=== PATIENT | female | born 1960 | race Caucasian/White ===

== ENCOUNTER 2018-10-11 01:02 | Inpatient (IN) | payer MEDICARE, OTHER, MEDICAID ==
[2018-10-11 01:53] LABS: ADD MAN DIFF? NO
[2018-10-11 01:56] LABS: WHITE BLOOD COUNT 17.3 10^3/ul (4.8-10.8)
[2018-10-11 01:56] LABS: BASOPHIL # 0.1 10^3/ul (0.0-0.1); BASOPHILS % 0.3 % (0.0-2.0); EOSINOPHILS # 0.1 10^3/ul (0.0-0.5); EOSINOPHILS % 0.5 % (0.0-7.0); HEMATOCRIT 36.7 % (37.0-47.0); HEMOGLOBIN 11.7 g/dl (12.0-16.0); LYMPHOCYTES # 0.8 10^3/ul (0.8-2.9); LYMPHOCYTES % 4.8 % (15.0-51.0); MEAN CORPUSCULAR HEMOGLOBIN 29.6 pg (29.0-33.0); MEAN CORPUSCULAR HGB CONC 31.9 g/dl (32.0-37.0); MEAN CORPUSCULAR VOLUME 92.9 fl (82.0-101.0); MEAN PLATELET VOLUME 10.3 fl (7.4-10.4); MONOCYTE # 0.6 10^3/ul (0.3-0.9); MONOCYTES % 3.2 % (0.0-11.0); NEUTROPHIL # 15.7 10^3/ul (1.6-7.5); NEUTROPHILS % 90.4 % (39.0-77.0); PLATELET COUNT 241 10^3/UL (140-415); RED BLOOD COUNT 3.95 10^6/ul (4.20-5.40); RED CELL DISTRIBUTION WIDTH 12.5 % (11.5-14.5)
[2018-10-11 02:24] LABS: ALANINE AMINOTRANSFERASE 97 IU/L (13-69); ALBUMIN 4.1 g/dl (3.3-4.9); ALKALINE PHOSPHATASE 293 IU/L (42-121); ANION GAP 6 (5-13); ASPARTATE AMINO TRANSFERASE 207 IU/L (15-46); BLOOD UREA NITROGEN 47 mg/dl (7-20); CALCIUM 9.1 mg/dl (8.4-10.2); CARBON DIOXIDE 37 mmol/L (21-31); CHLORIDE 99 mmol/L (97-110); CREATININE 1.81 mg/dl (0.44-1.00); Estimated GFR 29 mL/min (>60); GLUCOSE 223 mg/dl (70-220); POTASSIUM 3.1 mmol/L (3.5-5.1); SODIUM 142 mmol/L (135-144); TOTAL PROTEIN 7.5 g/dl (6.1-8.1)
[2018-10-11 02:40] LABS: B-TYPE NATRIURETIC PEPTIDE 486 PG/ML (0-125); TROPONIN-I < 0.012 ng/ml (0.000-0.120)
[2018-10-11] MEDS: ONDANSETRON 4 MG INJ IV ×2 (02:57→07:04)
[2018-10-11] MEDS: SOD CHLORIDE 0.9% 500 ML IV (02:57)
[2018-10-11 05:04] LABS: LIPASE 111 U/L (23-300)
[2018-10-11 08:13] LABS: CREATINE KINASE 33 IU/L (23-200)
[2018-10-11 08:24] LABS: CK INDEX 0.7; CK-MB < 0.22 ng/ml (0.0-2.4); TROPONIN-I < 0.012 ng/ml (0.000-0.120)
[2018-10-11 08:45] LABS: ADD UMIC NO; UR ASCORBIC ACID NEGATIVE (NEGATIVE); UR BILIRUBIN (Dip) NEGATIVE (NEGATIVE); UR BLOOD (Dip) NEGATIVE (NEGATIVE); UR CLARITY CLEAR (CLEAR); UR COLOR YELLOW (YELLOW); UR GLUCOSE (Dip) NEGATIVE (NEGATIVE); UR KETONES (Dip) NEGATIVE (NEGATIVE); UR LEUKOCYTE ESTERASE (Dip) NEGATIVE Leu/ul (NEGATIVE); UR NITRITE (Dip) NEGATIVE (NEGATIVE); UR TOTAL PROTEIN (Dip) NEGATIVE (NEGATIVE); UR UROBILINOGEN (Dip) 1+ mg/dL (NEGATIVE)
[2018-10-11 09:52] LABS: INR 1.02; PROTIME 13.5 Sec (11.9-14.9); PT RATIO 1.1
[2018-10-11 09:53] LABS: AMMONIA < 9 umol/l (9-30)
[2018-10-11 10:10] LABS: FREE T4 (FREE THYROXINE) 1.03 ng/dl (0.64-1.79)
[2018-10-11 10:25] LABS: THYROID STIMULATING HORMONE 0.183 MIU/L (0.465-4.680)
[2018-10-11] MEDS: POTASSIUM CHLORIDE 30 MEQ in SOD CHLORIDE 0.45% 1,000 ML IV (11:55)
[2018-10-11] MEDS: AZTREONAM 1 GM/NS (PMX) 50 ML IVPB ×2 (11:55→18:28)
[2018-10-11] MEDS ORDERED: AZTREONAM 1 GM/NS (PMX) 50 ML IVPB (14:00)
[2018-10-11 14:30] LABS: CREATINE KINASE 30 IU/L (23-200)
[2018-10-11 14:44] LABS: CK INDEX 0.7; CK-MB < 0.22 ng/ml (0.0-2.4); TROPONIN-I < 0.012 ng/ml (0.000-0.120)
[2018-10-11 16:03] LABS: CARBAMAZEPINE (TEGRETOL) 6.6 ug/ml (8.0-12.0)
[2018-10-11] MEDS: ALBUTEROL/IPRATROPIUM (NEB) 3 ML AMP HHN ×2 (18:36→20:00)
[2018-10-11] MEDS ORDERED: VANCOMYCIN IV PER PHARMACY XX (19:00)
[2018-10-11] MEDS ORDERED: DEXTROSE 50% 50 ML SYRINGE IV ×2 (20:00)
[2018-10-11] MEDS ORDERED: GLUCOSE GEL 15 GRAM TUBE BUCCAL (20:00)
[2018-10-11] MEDS ORDERED: GLUCOSE GEL 15 GRAM TUBE PO ×2 (20:00)
[2018-10-11] MEDS ORDERED: GLUCAGON 1 MG INJ IM (20:00)
[2018-10-11 20:10] LABS: Allen Test ACCEPTAB; Arterial Base Excess 4.6 mmol/L (-3.0-3); Arterial Blood Gas Oxygen Sat 97.5 mmHG (95.0-98.0); Arterial COHb 1.1 % (0.0-3.0); Arterial Fraction of Oxyhgb 96.2 % (93.0-99.0); Arterial HCO3 29.6 mmol/L (22.0-26.0); Arterial MetHb 0.2 % (0.0-1.5); Arterial pCO2 45.6 mmhg (35-45); MODE MASK - SIMPLE; Site Right Radial
[2018-10-11] MEDS: INSULIN ASPART [NOVOLOG] 3 ML PEN SC (21:00)
[2018-10-11] MEDS: VANCOMYCIN HCL 1.5 GM in SOD CHLORIDE 0.9% 250 ML IVPB (22:18)
[2018-10-11] MEDS: METHYLPREDNISOLONE 125 MG INJ IV (22:19)
[2018-10-11] MEDS: carBAMAZepine (XR) 200 MG TABSR PO (22:22)
[2018-10-11] MEDS: ENOXAPARIN 30 MG/0.3 ML SYG SC (22:27)
[2018-10-11] MEDS: NPH, HUMAN INSULIN ISOPHANE 3ML VIAL SC (23:56)
[2018-10-12] MEDS: ACETAMINOPHEN 650 MG SUPP PR ×2 (01:34→11:05)
[2018-10-12] MEDS: AZTREONAM 1 GM/NS (PMX) 50 ML IVPB ×2 (01:34→09:36)
[2018-10-12] MEDS: ALBUTEROL/IPRATROPIUM (NEB) 3 ML AMP HHN ×4 (02:00→20:09)
[2018-10-12 06:03] LABS: ABNORMAL IP MESSAGE 1; HEMATOCRIT 36.7 % (37.0-47.0); HEMOGLOBIN 11.4 g/dl (12.0-16.0); MEAN CORPUSCULAR HEMOGLOBIN 29.8 pg (29.0-33.0); MEAN CORPUSCULAR HGB CONC 31.1 g/dl (32.0-37.0); MEAN CORPUSCULAR VOLUME 95.8 fl (82.0-101.0); MEAN PLATELET VOLUME 10.6 fl (7.4-10.4); PLATELET COUNT 200 10^3/UL (140-415); RED BLOOD COUNT 3.83 10^6/ul (4.20-5.40); RED CELL DISTRIBUTION WIDTH 12.7 % (11.5-14.5)
[2018-10-12 06:03] LABS: WHITE BLOOD COUNT 20.7 10^3/ul (4.8-10.8)
[2018-10-12 06:31] LABS: ADD MAN DIFF? YES; POSITIVE DIFF @See below
[2018-10-12] MEDS: LEVOTHYROXINE 75 MCG TAB PO (06:36)
[2018-10-12 06:39] LABS: ALANINE AMINOTRANSFERASE 99 IU/L (13-69); ALBUMIN 3.5 g/dl (3.3-4.9); ALBUMIN/GLOBULIN RATIO 1.06; ALKALINE PHOSPHATASE 335 IU/L (42-121); ANION GAP 13 (5-13); ASPARTATE AMINO TRANSFERASE 141 IU/L (15-46); BILIRUBIN,INDIRECT 0.1 mg/dl (0-1.1); BILIRUBIN,TOTAL 0.1 mg/dl (0.2-1.3); BLOOD UREA NITROGEN 65 mg/dl (7-20); CALCIUM 7.5 mg/dl (8.4-10.2); CARBON DIOXIDE 32 mmol/L (21-31); CHLORIDE 95 mmol/L (97-110); CREATININE 2.09 mg/dl (0.44-1.00); Estimated GFR 24 mL/min (>60); GLUCOSE 183 mg/dl (70-220); POTASSIUM 4.4 mmol/L (3.5-5.1); SODIUM 140 mmol/L (135-144); TOTAL PROTEIN 6.8 g/dl (6.1-8.1)
[2018-10-12] MEDS: INSULIN ASPART [NOVOLOG] 3 ML PEN SC ×4 (06:52→22:00)
[2018-10-12 07:55] LABS: ANISOCYTOSIS 1+ (0-0); BAND NEUTROPHILS #M 13.4 10^3/ul (0.0-0.6); BAND NEUTROPHILS % (M) 65 % (0-4); LYMPHOCYTES #M 0.6 10^3/ul (0.8-2.9); LYMPHOCYTES % (M) 3 % (15-51); MICROCYTOSIS 1+ (0-0); PLATELET ESTIMATE NORMAL; POLYCHROMASIA 3+ (0-0); SEG NEUT #M 9.4 10^3/ul (1.6-7.5); SEGMENTED NEUTROPHILS (M) % 32 % (39-77)
[2018-10-12] MEDS: ENOXAPARIN 30 MG/0.3 ML SYG SC (08:22)
[2018-10-12] MEDS: NPH, HUMAN INSULIN ISOPHANE 3ML VIAL SC ×2 (09:00→21:59)
[2018-10-12 09:36] LABS: CHOLESTEROL 143 mg/dl (100-200)
[2018-10-12 09:36] LABS: CHOL/HDL RATIO 3.2 RATIO; HDL CHOLESTEROL 44 mg/dl (37-92); LDL CHOLESTEROL,CALCULATED 68 mg/dl; TRIGLYCERIDES 155 mg/dl (0-149)
[2018-10-12] MEDS ORDERED: VANCOMYCIN 750 MG (PMX) 250 ML IVPB (10:00)
[2018-10-12 11:09] LABS: AADO2 Arterial 226.1 mmHg (7.0-24.0); Allen Test ACCEPTAB; Arterial Base Excess 4.3 mmol/L (-3.0-3); Arterial Blood Gas Oxygen Sat 97.5 mmHG (95.0-98.0); Arterial COHb 0.2 % (0.0-3.0); Arterial HCO3 29.5 mmol/L (22.0-26.0); Arterial MetHb 0.3 % (0.0-1.5); Arterial pCO2 46.4 mmhg (35-45); MODE MASK - SIMPLE; Site Right Radial
[2018-10-12] MEDS: DEXTROSE 5%-0.45% NACL 1,000 ML IV ×2 (11:46→22:02)
[2018-10-12 12:49] LABS: ADD UMIC YES; UR ASCORBIC ACID NEGATIVE (NEGATIVE); UR BILIRUBIN (Dip) NEGATIVE (NEGATIVE); UR BLOOD (Dip) 1+ mg/dL (NEGATIVE); UR CLARITY CLEAR (CLEAR); UR COLOR AMBER (YELLOW); UR GLUCOSE (Dip) NEGATIVE (NEGATIVE); UR HYALINE CAST FEW /HPF (NONE SEEN); UR KETONES (Dip) NEGATIVE (NEGATIVE); UR LEUKOCYTE ESTERASE (Dip) NEGATIVE Leu/ul (NEGATIVE); UR NITRITE (Dip) NEGATIVE (NEGATIVE); UR RBC 1 /HPF (0-5); UR SPECIFIC GRAVITY (Dip) 1.021 (1.003-1.030); UR SQUAMOUS EPITHELIAL CELL FEW /HPF (FEW); UR TOTAL PROTEIN (Dip) NEGATIVE (NEGATIVE); UR UROBILINOGEN (Dip) 2+ mg/dL (NEGATIVE); UR WBC 16 /HPF (0-5)
[2018-10-12 12:56] LABS: CREATININE,URINE RANDOM 104.73 mg/dl (20-320)
[2018-10-12 12:59] LABS: SODIUM,URINE RANDOM < 13 mmol/L (30-90)
[2018-10-12] MEDS ORDERED: MEROPENEM 1 GM/50ML(PMX) 50 ML IVPB (14:30)
[2018-10-12] MEDS: MEROPENEM 500MG/50 ML (PMX) 50 ML IVPB (15:31)
[2018-10-12 16:17] LABS: CARBAMAZEPINE (TEGRETOL) 5.3 ug/ml (8.0-12.0)
[2018-10-12] MEDS: carBAMAZepine (XR) 200 MG TABSR PO (21:00)
[2018-10-12] MEDS: METHYLPREDNISOLONE 40 MG INJ IV (21:57)
[2018-10-13] MEDS: ACETAMINOPHEN 650 MG SUPP PR (00:41)
[2018-10-13] MEDS: MEROPENEM 500MG/50 ML (PMX) 50 ML IVPB ×3 (00:45→21:48)
[2018-10-13] MEDS: CARBAMAZEPINE 200 MG TAB PO ×4 (01:00→21:07)
[2018-10-13 01:09] LABS: AADO2 Arterial 316.3 mmHg (7.0-24.0); Allen Test ACCEPTAB; Arterial Base Excess 2.8 mmol/L (-3.0-3); Arterial Blood Gas Oxygen Sat 94.8 mmHG (95.0-98.0); Arterial COHb 0.3 % (0.0-3.0); Arterial Fraction of Oxyhgb 94.3 % (93.0-99.0); Arterial HCO3 27.7 mmol/L (22.0-26.0); Arterial MetHb 0.2 % (0.0-1.5); Arterial pCO2 43.7 mmhg (35-45); MODE MASK - SIMPLE; Site Right Radial
[2018-10-13] MEDS: ALBUTEROL/IPRATROPIUM (NEB) 3 ML AMP HHN ×4 (01:31→20:38)
[2018-10-13 05:05] LABS: ABNORMAL IP MESSAGE 1; HEMATOCRIT 33.5 % (37.0-47.0); HEMOGLOBIN 10.5 g/dl (12.0-16.0); MEAN CORPUSCULAR HEMOGLOBIN 29.8 pg (29.0-33.0); MEAN CORPUSCULAR HGB CONC 31.3 g/dl (32.0-37.0); MEAN CORPUSCULAR VOLUME 95.2 fl (82.0-101.0); MEAN PLATELET VOLUME 10.9 fl (7.4-10.4); PLATELET COUNT 192 10^3/UL (140-415); RED BLOOD COUNT 3.52 10^6/ul (4.20-5.40); RED CELL DISTRIBUTION WIDTH 12.5 % (11.5-14.5)
[2018-10-13 05:05] LABS: WHITE BLOOD COUNT 18.5 10^3/ul (4.8-10.8)
[2018-10-13 05:10] LABS: ADD MAN DIFF? YES; POSITIVE DIFF @See below
[2018-10-13 05:25] LABS: ANION GAP 9 (5-13); BLOOD UREA NITROGEN 78 mg/dl (7-20); CALCIUM 6.5 mg/dl (8.4-10.2); CARBON DIOXIDE 29 mmol/L (21-31); CHLORIDE 102 mmol/L (97-110); CREATININE 2.22 mg/dl (0.44-1.00); Estimated GFR 23 mL/min (>60); GLUCOSE 237 mg/dl (70-220); POTASSIUM 4.3 mmol/L (3.5-5.1); SODIUM 140 mmol/L (135-144)
[2018-10-13 05:43] LABS: PHOSPHORUS 4.4 mg/dl (2.5-4.9)
[2018-10-13 05:44] LABS: MAGNESIUM 8.2 mg/dl (1.7-2.5)
[2018-10-13] MEDS: LEVOTHYROXINE 100 MCG VIAL IV (06:27)
[2018-10-13 06:55] LABS: ALANINE AMINOTRANSFERASE 74 IU/L (13-69); ALBUMIN 3.2 g/dl (3.3-4.9); ALBUMIN/GLOBULIN RATIO 1.06; ALKALINE PHOSPHATASE 422 IU/L (42-121); ANION GAP 10 (5-13); ASPARTATE AMINO TRANSFERASE 77 IU/L (15-46); BLOOD UREA NITROGEN 78 mg/dl (7-20); CALCIUM 6.6 mg/dl (8.4-10.2); CARBON DIOXIDE 28 mmol/L (21-31); CHLORIDE 102 mmol/L (97-110); Estimated GFR 23 mL/min (>60); GLUCOSE 211 mg/dl (70-220); PHOSPHORUS 4.7 mg/dl (2.5-4.9); POTASSIUM 4.3 mmol/L (3.5-5.1); SODIUM 140 mmol/L (135-144); TOTAL PROTEIN 6.2 g/dl (6.1-8.1)
[2018-10-13] MEDS: LORAZEPAM 2 MG INJ IV (07:00)
[2018-10-13 07:04] LABS: MAGNESIUM 8.2 mg/dl (1.7-2.5)
[2018-10-13] MEDS: DEXTROSE 5%-0.45% NACL 1,000 ML IV (07:30)
[2018-10-13] MEDS: FUROSEMIDE 40 MG INJ IV ×2 (07:51→16:29)
[2018-10-13] MEDS: CALCIUM GLUCONATE 10% 1 GM in DEXTROSE 5% 100 ML IVPB (08:10)
[2018-10-13] MEDS: METHYLPREDNISOLONE 40 MG INJ IV ×2 (08:15→21:06)
[2018-10-13] MEDS: NPH, HUMAN INSULIN ISOPHANE 3ML VIAL SC ×2 (08:23→22:01)
[2018-10-13] MEDS: ENOXAPARIN 30 MG/0.3 ML SYG SC (08:24)
[2018-10-13] MEDS: SOD CHLORIDE 0.9% 1,000 ML IV ×2 (08:39→16:00)
[2018-10-13] MEDS: INSULIN ASPART [NOVOLOG] 3 ML PEN SC ×4 (08:39→21:00)
[2018-10-13] MEDS ORDERED: CARBAMAZEPINE 200 MG TAB PO (09:00)
[2018-10-13 09:07] LABS: BAND NEUTROPHILS #M 7.4 10^3/ul (0.0-0.6); BAND NEUTROPHILS % (M) 40 % (0-4); LYMPHOCYTES #M 0.1 10^3/ul (0.8-2.9); LYMPHOCYTES % (M) 1 % (15-51); MONOCYTE #M 0.3 10^3/ul (0.3-0.9); MONOCYTES % (M) 2 % (0-11); PLATELET ESTIMATE NORMAL; REACTIVE LYMPHOCYTES #M 0.3 10^3/ul (0.0-0.0); REACTIVE LYMPHOCYTES% (M) 2 % (0-0); SEG NEUT #M 11.5 10^3/ul (1.6-7.5); SEGMENTED NEUTROPHILS (M) % 55 % (39-77); SMUDGE%M 4 % (0-0)
[2018-10-13 09:15] LABS: AADO2 Arterial 248.3 mmHg (7.0-24.0); Allen Test ACCEPTAB; Arterial Base Excess -0.6 mmol/L (-3.0-3); Arterial Blood Gas Oxygen Sat 98.4 mmHG (95.0-98.0); Arterial COHb 0.4 % (0.0-3.0); Arterial Fraction of Oxyhgb 97.8 % (93.0-99.0); Arterial HCO3 23.6 mmol/L (22.0-26.0); Arterial MetHb 0.2 % (0.0-1.5); Arterial pCO2 37.5 mmhg (35-45); MODE MASK - SIMPLE; Site Left Radial
[2018-10-13] MEDS ORDERED: VANCOMYCIN 1 GM 250 ML IVPB (10:00)
[2018-10-13 10:45] LABS: CREATINE KINASE 85 IU/L (23-200)
[2018-10-13 11:03] LABS: MAGNESIUM 7.5 mg/dl (1.7-2.5)
[2018-10-13] MEDS: LACTULOSE 30ML CUP PO (12:03)
[2018-10-13 14:29] LABS: AMMONIA < 9 umol/l (9-30)
[2018-10-13 14:31] LABS: ANION GAP 8 (5-13); BLOOD UREA NITROGEN 81 mg/dl (7-20); CARBON DIOXIDE 30 mmol/L (21-31); CHLORIDE 102 mmol/L (97-110); CREATININE 2.11 mg/dl (0.44-1.00); Estimated GFR 24 mL/min (>60); GLUCOSE 155 mg/dl (70-220); POTASSIUM 4.2 mmol/L (3.5-5.1); SODIUM 140 mmol/L (135-144)
[2018-10-13 14:43] LABS: MAGNESIUM 7.2 mg/dl (1.7-2.5)
[2018-10-13 14:52] LABS: CREATININE, RANDOM URINE 98 mg/dL (20-275); MICROALBUMIN 1.8 mg/dL; MICROALBUMIN/CREATININE RATIO 18 (<30)
[2018-10-13 18:39] LABS: ANION GAP 12 (5-13); BLOOD UREA NITROGEN 82 mg/dl (7-20); CALCIUM 6.7 mg/dl (8.4-10.2); CARBON DIOXIDE 25 mmol/L (21-31); CHLORIDE 104 mmol/L (97-110); CREATININE 1.96 mg/dl (0.44-1.00); Estimated GFR 26 mL/min (>60); GLUCOSE 138 mg/dl (70-220); POTASSIUM 4.3 mmol/L (3.5-5.1); SODIUM 141 mmol/L (135-144)
[2018-10-13 18:40] LABS: MAGNESIUM 6.7 mg/dl (1.7-2.5)
[2018-10-13] MEDS: DEXTROSE 5%-0.9% NACL 1,000 ML IV (21:06)
[2018-10-13] MEDS: VANCOMYCIN HCL 1.25 GM in SOD CHLORIDE 0.9% 250 ML IVPB (23:14)
[2018-10-14] MEDS: ACETAMINOPHEN 325 MG TAB PO (00:06)
[2018-10-14] MEDS: ALBUTEROL/IPRATROPIUM (NEB) 3 ML AMP HHN ×4 (01:37→19:00)
[2018-10-14] MEDS: FUROSEMIDE 40 MG INJ IV (02:33)
[2018-10-14] MEDS: DEXTROSE 5%-0.9% NACL 1,000 ML IV (02:46)
[2018-10-14 05:28] LABS: ABNORMAL IP MESSAGE 1; HEMATOCRIT 32.4 % (37.0-47.0); HEMOGLOBIN 10.1 g/dl (12.0-16.0); MEAN CORPUSCULAR HEMOGLOBIN 29.6 pg (29.0-33.0); MEAN CORPUSCULAR HGB CONC 31.2 g/dl (32.0-37.0); MEAN PLATELET VOLUME 11.1 fl (7.4-10.4); PLATELET COUNT 268 10^3/UL (140-415); RED BLOOD COUNT 3.41 10^6/ul (4.20-5.40); RED CELL DISTRIBUTION WIDTH 12.5 % (11.5-14.5)
[2018-10-14 05:28] LABS: WHITE BLOOD COUNT 23.8 10^3/ul (4.8-10.8)
[2018-10-14 05:33] LABS: POSITIVE DIFF @See below
[2018-10-14 05:34] LABS: ADD MAN DIFF? YES
[2018-10-14] MEDS: LEVOTHYROXINE 100 MCG VIAL IV (05:41)
[2018-10-14 05:45] LABS: AADO2 Arterial 113.7 mmHg (7.0-24.0); Allen Test ACCEPTAB; Arterial Base Excess 1.3 mmol/L (-3.0-3); Arterial COHb 0.2 % (0.0-3.0); Arterial Fraction of Oxyhgb 94.5 % (93.0-99.0); Arterial HCO3 25.5 mmol/L (22.0-26.0); Arterial MetHb 0.3 % (0.0-1.5); Arterial pCO2 38.8 mmhg (35-45); MODE NASAL CANNULA; Site Left Radial
[2018-10-14 06:00] LABS: ANION GAP 6 (5-13); BLOOD UREA NITROGEN 84 mg/dl (7-20); CARBON DIOXIDE 30 mmol/L (21-31); CHLORIDE 108 mmol/L (97-110); CREATININE 2.15 mg/dl (0.44-1.00); Estimated GFR 24 mL/min (>60); GLUCOSE 162 mg/dl (70-220); POTASSIUM 3.6 mmol/L (3.5-5.1); SODIUM 144 mmol/L (135-144)
[2018-10-14] MEDS: INSULIN ASPART [NOVOLOG] 3 ML PEN SC ×4 (07:35→21:00)
[2018-10-14] MEDS: CARBAMAZEPINE 200 MG TAB PO (08:17)
[2018-10-14] MEDS: METHYLPREDNISOLONE 40 MG INJ IV ×2 (08:18→21:55)
[2018-10-14] MEDS: MEROPENEM 500MG/50 ML (PMX) 50 ML IVPB (08:18)
[2018-10-14] MEDS: NPH, HUMAN INSULIN ISOPHANE 3ML VIAL SC ×2 (08:20→22:05)
[2018-10-14] MEDS: ENOXAPARIN 30 MG/0.3 ML SYG SC (09:00)
[2018-10-14 09:35] LABS: BAND NEUTROPHILS #M 5.4 10^3/ul (0.0-0.6); BAND NEUTROPHILS % (M) 23 % (0-4); GIANT THROMBO% (M) 1 % (0-0); LYMPHOCYTES #M 0.7 10^3/ul (0.8-2.9); LYMPHOCYTES % (M) 3 % (15-51); MONOCYTE #M 0.7 10^3/ul (0.3-0.9); MONOCYTES % (M) 3 % (0-11); PLATELET ESTIMATE NORMAL; POLYCHROMASIA 1+ (0-0); PROMYELOCYTES #M 0.2 10^3/ul (0-0); PROMYELOCYTES % (M) 1 % (0-0); REACTIVE LYMPHOCYTES #M 0.4 10^3/ul (0.0-0.0); REACTIVE LYMPHOCYTES% (M) 2 % (0-0); SEG NEUT #M 17.5 10^3/ul (1.6-7.5); SEGMENTED NEUTROPHILS (M) % 68 % (39-77); SMUDGE%M 29 % (0-0)
[2018-10-14 12:52] LABS: ANION GAP 7 (5-13); BLOOD UREA NITROGEN 83 mg/dl (7-20); CARBON DIOXIDE 31 mmol/L (21-31); CHLORIDE 109 mmol/L (97-110); CREATININE 1.92 mg/dl (0.44-1.00); Estimated GFR 27 mL/min (>60); GLUCOSE 157 mg/dl (70-220); POTASSIUM 3.5 mmol/L (3.5-5.1); SODIUM 147 mmol/L (135-144)
[2018-10-14 12:54] LABS: MAGNESIUM 5.2 mg/dl (1.7-2.5)
[2018-10-14] MEDS: LORAZEPAM 2 MG INJ IV (15:50)
[2018-10-14 15:55] LABS: HEPATITIS B SURFACE ANTIGEN NEGATIVE (NEGATIVE)
[2018-10-14 16:13] LABS: HEPATITIS B SURFACE ANTIBODY NEGATIVE (NEGATIVE)
[2018-10-14] MEDS: HEPARIN 1000 UNITS/ML 10 ML INJ CATHETER (20:08)
[2018-10-15] MEDS: ACETAMINOPHEN 325 MG TAB PO (00:37)
[2018-10-15] MEDS: ALBUTEROL/IPRATROPIUM (NEB) 3 ML AMP HHN ×4 (01:00→20:19)
[2018-10-15] MEDS: INSULIN ASPART [NOVOLOG] 3 ML PEN SC ×6 (02:11→20:42)
[2018-10-15] MEDS: DEXTROSE 5%-0.9% NACL 1,000 ML IV (02:39)
[2018-10-15 05:32] LABS: WHITE BLOOD COUNT 25.7 10^3/ul (4.8-10.8)
[2018-10-15 05:32] LABS: ABNORMAL IP MESSAGE 1; HEMATOCRIT 31.3 % (37.0-47.0); HEMOGLOBIN 9.8 g/dl (12.0-16.0); MEAN CORPUSCULAR HEMOGLOBIN 29.6 pg (29.0-33.0); MEAN CORPUSCULAR HGB CONC 31.3 g/dl (32.0-37.0); MEAN CORPUSCULAR VOLUME 94.6 fl (82.0-101.0); MEAN PLATELET VOLUME 10.3 fl (7.4-10.4); NUCLEATED RED BLOOD CELLS% 0.1 /100WBC (0.0-0.0); PLATELET COUNT 258 10^3/UL (140-415); RED BLOOD COUNT 3.31 10^6/ul (4.20-5.40); RED CELL DISTRIBUTION WIDTH 12.8 % (11.5-14.5)
[2018-10-15 05:36] LABS: ADD MAN DIFF? YES; POSITIVE DIFF @See below
[2018-10-15] MEDS: LEVOTHYROXINE 100 MCG VIAL IV (05:55)
[2018-10-15 05:57] LABS: ANION GAP 7 (5-13); BLOOD UREA NITROGEN 53 mg/dl (7-20); CARBON DIOXIDE 31 mmol/L (21-31); CHLORIDE 109 mmol/L (97-110); Estimated GFR 36 mL/min (>60); GLUCOSE 218 mg/dl (70-220); SODIUM 147 mmol/L (135-144)
[2018-10-15 06:16] LABS: MAGNESIUM 3.8 mg/dl (1.7-2.5)
[2018-10-15 06:24] LABS: CARBAMAZEPINE (TEGRETOL) 11.2 ug/ml (8.0-12.0)
[2018-10-15] MEDS: METHYLPREDNISOLONE 40 MG INJ IV ×2 (08:48→20:40)
[2018-10-15] MEDS: ENOXAPARIN 30 MG/0.3 ML SYG SC (08:53)
[2018-10-15] MEDS: NPH, HUMAN INSULIN ISOPHANE 3ML VIAL SC ×2 (08:54→20:41)
[2018-10-15 09:20] LABS: ANISOCYTOSIS 1+ (0-0); BAND NEUTROPHILS #M 4.1 10^3/ul (0.0-0.6); BAND NEUTROPHILS % (M) 16 % (0-4); ERYTHROBLAST% (NRBC) (M) 1 % (0-0); LYMPHOCYTES % (M) 4 % (15-51); MONOCYTE #M 1.2 10^3/ul (0.3-0.9); MONOCYTES % (M) 5 % (0-11); MYELOCYTES % (M) 4 % (0-0); PLATELET ESTIMATE NORMAL; POLYCHROMASIA 1+ (0-0); SEG NEUT #M 19.6 10^3/ul (1.6-7.5); SEGMENTED NEUTROPHILS (M) % 72 % (39-77); TOXIC GRANULATION 1+ (0-0)
[2018-10-15] MEDS ORDERED: VANCOMYCIN HCL 1.25 GM in SOD CHLORIDE 0.9% 250 ML IVPB (12:00)
[2018-10-15] MEDS: CARBAMAZEPINE 200 MG TAB PO ×2 (15:33→20:52)
[2018-10-15] MEDS: HEPARIN 1000 UNITS/ML 10 ML INJ CATHETER (15:41)
[2018-10-15] MEDS: VANCOMYCIN HCL 1.25 GM in SOD CHLORIDE 0.9% 250 ML IVPB (17:25)
[2018-10-16] MEDS: INSULIN ASPART [NOVOLOG] 3 ML PEN SC ×6 (01:01→20:43)
[2018-10-16] MEDS: DEXTROSE 5%-0.9% NACL 1,000 ML IV (01:04)
[2018-10-16] MEDS: ALBUTEROL/IPRATROPIUM (NEB) 3 ML AMP HHN ×4 (01:52→20:38)
[2018-10-16] MEDS: ACETAMINOPHEN 325 MG TAB PO (04:08)
[2018-10-16 05:14] LABS: ABNORMAL IP MESSAGE 1; HEMATOCRIT 31.8 % (37.0-47.0); HEMOGLOBIN 9.8 g/dl (12.0-16.0); MEAN CORPUSCULAR HEMOGLOBIN 29.1 pg (29.0-33.0); MEAN CORPUSCULAR HGB CONC 30.8 g/dl (32.0-37.0); MEAN CORPUSCULAR VOLUME 94.4 fl (82.0-101.0); MEAN PLATELET VOLUME 10.6 fl (7.4-10.4); NUCLEATED RED BLOOD CELLS% 0.1 /100WBC (0.0-0.0); PLATELET COUNT 245 10^3/UL (140-415); RED BLOOD COUNT 3.37 10^6/ul (4.20-5.40); RED CELL DISTRIBUTION WIDTH 13.2 % (11.5-14.5)
[2018-10-16 05:14] LABS: WHITE BLOOD COUNT 23.7 10^3/ul (4.8-10.8)
[2018-10-16 05:17] LABS: ADD MAN DIFF? YES; POSITIVE DIFF @See below
[2018-10-16] MEDS: LEVOTHYROXINE 100 MCG VIAL IV (05:41)
[2018-10-16 05:43] LABS: ANION GAP 8 (5-13); BLOOD UREA NITROGEN 41 mg/dl (7-20); CALCIUM 8.3 mg/dl (8.4-10.2); CARBON DIOXIDE 29 mmol/L (21-31); CHLORIDE 108 mmol/L (97-110); CREATININE 1.15 mg/dl (0.44-1.00); Estimated GFR 48 mL/min (>60); GLUCOSE 195 mg/dl (70-220); SODIUM 145 mmol/L (135-144)
[2018-10-16 06:51] LABS: CARBAMAZEPINE (TEGRETOL) 5.7 ug/ml (8.0-12.0)
[2018-10-16 07:15] LABS: BAND NEUTROPHILS #M 4.9 10^3/ul (0.0-0.6); BAND NEUTROPHILS % (M) 21 % (0-4); EOSINOPHILS % (M) 1 % (0-7); LYMPHOCYTES #M 1.6 10^3/ul (0.8-2.9); LYMPHOCYTES % (M) 7 % (15-51); METAMYELOCYTES #M 0.7 10^3/ul (0.0-0.0); METAMYELOCYTES %M 3 % (0-0); MONOCYTE #M 1.8 10^3/ul (0.3-0.9); MONOCYTES % (M) 8 % (0-11); MYELOCYTES #M 0.4 10^3/ul (0.0-0.0); MYELOCYTES % (M) 2 % (0-0); OVALOCYTES 1+ (0-0); PLATELET ESTIMATE NORMAL; POLYCHROMASIA 1+ (0-0); SCHISTOCYTES 1+ (0-0); SEG NEUT #M 14.9 10^3/ul (1.6-7.5); SEGMENTED NEUTROPHILS (M) % 58 % (39-77); SMUDGE%M 5 % (0-0)
[2018-10-16 07:31] LABS: PHOSPHORUS 2.4 mg/dl (2.5-4.9)
[2018-10-16 07:31] LABS: MAGNESIUM 2.9 mg/dl (1.7-2.5)
[2018-10-16] MEDS: METHYLPREDNISOLONE 40 MG INJ IV ×2 (08:33→20:43)
[2018-10-16] MEDS: NPH, HUMAN INSULIN ISOPHANE 3ML VIAL SC ×2 (08:37→20:47)
[2018-10-16] MEDS: ENOXAPARIN 30 MG/0.3 ML SYG SC (08:37)
[2018-10-16] MEDS ORDERED: LORAZEPAM (2 MG/ML) INJ IV (09:00)
[2018-10-16] MEDS: CARBAMAZEPINE 200 MG TAB PO ×3 (09:00→20:36)
[2018-10-16] MEDS: HEPARIN 1000 UNITS/ML 10 ML INJ (12:42)
[2018-10-16] MEDS: LORAZEPAM 2 MG INJ IV ×3 (14:19→23:25)
[2018-10-17] MEDS: DEXTROSE 5%-0.9% NACL 1,000 ML IV (00:58)
[2018-10-17] MEDS: INSULIN ASPART [NOVOLOG] 3 ML PEN SC ×3 (01:00→08:41)
[2018-10-17] MEDS: ALBUTEROL/IPRATROPIUM (NEB) 3 ML AMP HHN ×4 (02:24→20:52)
[2018-10-17] MEDS: VANCOMYCIN HCL 1.25 GM in SOD CHLORIDE 0.9% 250 ML IVPB (03:49)
[2018-10-17] MEDS: LEVOTHYROXINE 100 MCG VIAL IV (05:32)
[2018-10-17] MEDS: LORAZEPAM 2 MG INJ IV ×4 (05:32→23:34)
[2018-10-17] MEDS: ACETAMINOPHEN 650 MG SUPP PR (05:43)
[2018-10-17 05:47] LABS: ABNORMAL IP MESSAGE 1; HEMATOCRIT 29.2 % (37.0-47.0); MEAN CORPUSCULAR HEMOGLOBIN 29.5 pg (29.0-33.0); MEAN CORPUSCULAR HGB CONC 30.8 g/dl (32.0-37.0); MEAN CORPUSCULAR VOLUME 95.7 fl (82.0-101.0); MEAN PLATELET VOLUME 10.7 fl (7.4-10.4); PLATELET COUNT 227 10^3/UL (140-415); RED BLOOD COUNT 3.05 10^6/ul (4.20-5.40); RED CELL DISTRIBUTION WIDTH 13.4 % (11.5-14.5)
[2018-10-17 05:47] LABS: WHITE BLOOD COUNT 20.8 10^3/ul (4.8-10.8)
[2018-10-17 06:01] LABS: POSITIVE DIFF @See below
[2018-10-17 06:02] LABS: ADD MAN DIFF? YES
[2018-10-17 06:12] LABS: MAGNESIUM 2.5 mg/dl (1.7-2.5)
[2018-10-17 06:12] LABS: PHOSPHORUS 4.2 mg/dl (2.5-4.9)
[2018-10-17 07:31] LABS: BAND NEUTROPHILS #M 2.4 10^3/ul (0.0-0.6); BAND NEUTROPHILS % (M) 12 % (0-4); LYMPHOCYTES #M 1.6 10^3/ul (0.8-2.9); LYMPHOCYTES % (M) 8 % (15-51); METAMYELOCYTES #M 0.6 10^3/ul (0.0-0.0); METAMYELOCYTES %M 3 % (0-0); MONOCYTE #M 1.4 10^3/ul (0.3-0.9); MONOCYTES % (M) 7 % (0-11); MYELOCYTES #M 0.8 10^3/ul (0.0-0.0); MYELOCYTES % (M) 4 % (0-0); PLASMAC%(M) 2 % (0); SEG NEUT #M 13.8 10^3/ul (1.6-7.5); SEGMENTED NEUTROPHILS (M) % 64 % (39-77)
[2018-10-17 07:32] LABS: ANISOCYTOSIS 1+ (0-0); PLASMA CELLS #M 0.4 10^3/ul (0.0-0.0); PLATELET ESTIMATE NORMAL; POLYCHROMASIA 1+ (0-0); SMUDGE%M 3 % (0-0)
[2018-10-17 07:34] LABS: TOXIC GRANULATION MODERATE (0-0)
[2018-10-17 07:38] LABS: ANION GAP 5 (5-13); BLOOD UREA NITROGEN 37 mg/dl (7-20); CALCIUM 8.4 mg/dl (8.4-10.2); CARBON DIOXIDE 27 mmol/L (21-31); CHLORIDE 116 mmol/L (97-110); CREATININE 1.14 mg/dl (0.44-1.00); Estimated GFR 49 mL/min (>60); GLUCOSE 92 mg/dl (70-220); POTASSIUM 4.5 mmol/L (3.5-5.1); SODIUM 148 mmol/L (135-144)
[2018-10-17 08:01] LABS: AADO2 Arterial 81.9 mmHg (7.0-24.0); Allen Test ACCEPTAB; Arterial Base Excess -0.1 mmol/L (-3.0-3); Arterial COHb 0.6 % (0.0-3.0); Arterial Fraction of Oxyhgb 88.2 % (93.0-99.0); Arterial HCO3 22.5 mmol/L (22.0-26.0); Arterial MetHb 0.3 % (0.0-1.5); Arterial pCO2 29.7 mmhg (35-45); MODE NASAL CANNULA; Site Right Radial
[2018-10-17] MEDS: METHYLPREDNISOLONE 40 MG INJ IV (08:38)
[2018-10-17] MEDS: ENOXAPARIN 30 MG/0.3 ML SYG SC (08:39)
[2018-10-17] MEDS: CARBAMAZEPINE 200 MG TAB PO ×3 (08:41→21:47)
[2018-10-17] MEDS: ACETAMINOPHEN 325 MG TAB PO ×2 (15:10→23:40)
[2018-10-17] MEDS ORDERED: INSULIN ASPART [NOVOLOG] 3 ML PEN SC (17:05)
[2018-10-17] MEDS: Insulin NOVOLOG SS MILD Algorithm (SS with meals and bedtime) SC ×2 (17:25→21:00)
[2018-10-18] MEDS: HYDROCODONE/APAP (5/325) TAB PO ×3 (02:34→19:49)
[2018-10-18 05:31] LABS: ABNORMAL IP MESSAGE 1; HEMATOCRIT 25.1 % (37.0-47.0); HEMOGLOBIN 7.5 g/dl (12.0-16.0); MEAN CORPUSCULAR HEMOGLOBIN 29.2 pg (29.0-33.0); MEAN CORPUSCULAR HGB CONC 29.9 g/dl (32.0-37.0); MEAN CORPUSCULAR VOLUME 97.7 fl (82.0-101.0); MEAN PLATELET VOLUME 10.5 fl (7.4-10.4); PLATELET COUNT 202 10^3/UL (140-415); RED BLOOD COUNT 2.57 10^6/ul (4.20-5.40); RED CELL DISTRIBUTION WIDTH 13.4 % (11.5-14.5)
[2018-10-18 05:31] LABS: WHITE BLOOD COUNT 15.1 10^3/ul (4.8-10.8)
[2018-10-18 05:38] LABS: POSITIVE DIFF @See below
[2018-10-18 05:39] LABS: ADD MAN DIFF? YES
[2018-10-18 05:41] LABS: PHOSPHORUS 3.9 mg/dl (2.5-4.9)
[2018-10-18 05:43] LABS: ANION GAP 7 (5-13); BLOOD UREA NITROGEN 25 mg/dl (7-20); CALCIUM 7.5 mg/dl (8.4-10.2); CARBON DIOXIDE 21 mmol/L (21-31); CHLORIDE 120 mmol/L (97-110); CREATININE 1.05 mg/dl (0.44-1.00); Estimated GFR 54 mL/min (>60); GLUCOSE 308 mg/dl (70-220); SODIUM 148 mmol/L (135-144)
[2018-10-18 05:46] LABS: VANCOMYCIN,RANDOM 13.9 ug/ml
[2018-10-18] MEDS: LEVOTHYROXINE 100 MCG VIAL IV (06:21)
[2018-10-18] MEDS: LORAZEPAM 2 MG INJ IV ×2 (06:21→12:13)
[2018-10-18] MEDS: DEXTROSE 5%-0.9% NACL 1,000 ML IV ×2 (06:43→16:19)
[2018-10-18] MEDS: Insulin NOVOLOG SS MILD Algorithm (SS with meals and bedtime) SC ×4 (07:25→20:36)
[2018-10-18] MEDS: ALBUTEROL/IPRATROPIUM (NEB) 3 ML AMP HHN ×4 (08:00→19:55)
[2018-10-18] MEDS: METHYLPREDNISOLONE 40 MG INJ IV (08:39)
[2018-10-18] MEDS: ENOXAPARIN 30 MG/0.3 ML SYG SC (08:43)
[2018-10-18] MEDS: CARBAMAZEPINE 200 MG TAB PO ×3 (08:47→20:36)
[2018-10-18] MEDS ORDERED: NPH, HUMAN INSULIN ISOPHANE 3ML VIAL SC (09:00)
[2018-10-18 09:29] LABS: ANISOCYTOSIS 1+ (0-0); BAND NEUTROPHILS #M 1.5 10^3/ul (0.0-0.6); BAND NEUTROPHILS % (M) 10 % (0-4); LYMPHOCYTES #M 1.6 10^3/ul (0.8-2.9); LYMPHOCYTES % (M) 11 % (15-51); METAMYELOCYTES #M 0.1 10^3/ul (0.0-0.0); METAMYELOCYTES %M 1 % (0-0); MICROCYTOSIS 1+ (0-0); MONOCYTE #M 0.7 10^3/ul (0.3-0.9); MONOCYTES % (M) 5 % (0-11); MYELOCYTES #M 0.3 10^3/ul (0.0-0.0); MYELOCYTES % (M) 2 % (0-0); PLATELET ESTIMATE NORMAL; POLYCHROMASIA 2+ (0-0); PROMYELOCYTES #M 0.1 10^3/ul (0-0); PROMYELOCYTES % (M) 1 % (0-0); REACTIVE LYMPHOCYTES #M 0.1 10^3/ul (0.0-0.0); REACTIVE LYMPHOCYTES% (M) 1 % (0-0); SEG NEUT #M 10.6 10^3/ul (1.6-7.5); SEGMENTED NEUTROPHILS (M) % 69 % (39-77); SMUDGE%M 2 % (0-0)
[2018-10-18] MEDS: VANCOMYCIN HCL 1.25 GM in SOD CHLORIDE 0.9% 250 ML IVPB (15:14)
[2018-10-18] MEDS: ONDANSETRON 4 MG INJ IV ×2 (15:14→21:43)
[2018-10-18 16:13] LABS: CARBAMAZEPINE (TEGRETOL) 7.8 ug/ml (8.0-12.0)
[2018-10-18] MEDS: DIPHENHYDRAMINE 25 MG CAP PO (20:36)
[2018-10-18] MEDS: BALSAM PERU/CASTOR OIL 60 GM TUBE TOP (21:45)
[2018-10-19] MEDS: HYDROCODONE/APAP (5/325) TAB PO ×3 (01:39→19:55)
[2018-10-19] MEDS: ALBUTEROL/IPRATROPIUM (NEB) 3 ML AMP HHN ×4 (02:08→20:49)
[2018-10-19] MEDS: ONDANSETRON 4 MG INJ IV ×2 (03:52→18:57)
[2018-10-19] MEDS: ACETAMINOPHEN 325 MG TAB PO (03:56)
[2018-10-19 05:20] LABS: WHITE BLOOD COUNT 13.5 10^3/ul (4.8-10.8)
[2018-10-19 05:20] LABS: ABNORMAL IP MESSAGE 1; HEMATOCRIT 24.8 % (37.0-47.0); HEMOGLOBIN 7.6 g/dl (12.0-16.0); MEAN CORPUSCULAR HEMOGLOBIN 29.9 pg (29.0-33.0); MEAN CORPUSCULAR HGB CONC 30.6 g/dl (32.0-37.0); MEAN CORPUSCULAR VOLUME 97.6 fl (82.0-101.0); MEAN PLATELET VOLUME 10.6 fl (7.4-10.4); PLATELET COUNT 240 10^3/UL (140-415); RED BLOOD COUNT 2.54 10^6/ul (4.20-5.40); RED CELL DISTRIBUTION WIDTH 13.5 % (11.5-14.5)
[2018-10-19 05:35] LABS: ANION GAP 6 (5-13); BLOOD UREA NITROGEN 21 mg/dl (7-20); CALCIUM 8.1 mg/dl (8.4-10.2); CARBON DIOXIDE 21 mmol/L (21-31); CHLORIDE 117 mmol/L (97-110); CREATININE 1.14 mg/dl (0.44-1.00); Estimated GFR 49 mL/min (>60); GLUCOSE 83 mg/dl (70-220); POTASSIUM 4.6 mmol/L (3.5-5.1); SODIUM 144 mmol/L (135-144)
[2018-10-19 05:41] LABS: MAGNESIUM 1.8 mg/dl (1.7-2.5)
[2018-10-19 05:41] LABS: PHOSPHORUS 4.1 mg/dl (2.5-4.9)
[2018-10-19 05:47] LABS: ADD MAN DIFF? YES; POSITIVE DIFF @See below
[2018-10-19] MEDS: LEVOTHYROXINE 100 MCG VIAL IV (06:32)
[2018-10-19 07:49] LABS: ANISOCYTOSIS 1+ (0-0); BAND NEUTROPHILS #M 1.6 10^3/ul (0.0-0.6); BAND NEUTROPHILS % (M) 12 % (0-4); BASOPHIL #M 0.2 10^3/ul (0.0-0.0); BASOPHILS % (M) 2 % (0-2); GIANT THROMBO% (M) 1 % (0-0); LYMPHOCYTES % (M) 8 % (15-51); MONOCYTE #M 0.6 10^3/ul (0.3-0.9); MONOCYTES % (M) 5 % (0-11); PLATELET ESTIMATE NORMAL; POLYCHROMASIA 1+ (0-0); SEG NEUT #M 10.1 10^3/ul (1.6-7.5); SEGMENTED NEUTROPHILS (M) % 73 % (39-77); SMUDGE%M 41 % (0-0); TOXIC GRANULATION 1+ (0-0)
[2018-10-19] MEDS: Insulin NOVOLOG SS MILD Algorithm (SS with meals and bedtime) SC ×2 (08:50→13:21)
[2018-10-19] MEDS: CARBAMAZEPINE 200 MG TAB PO ×4 (08:58→21:45)
[2018-10-19] MEDS: METHYLPREDNISOLONE 40 MG INJ IV (08:58)
[2018-10-19] MEDS: ENOXAPARIN 30 MG/0.3 ML SYG SC (08:58)
[2018-10-19] MEDS: DEXTROSE 5%-0.9% NACL 1,000 ML IV (11:54)
[2018-10-19] MEDS: BALSAM PERU/CASTOR OIL 60 GM TUBE TOP ×2 (11:55→21:45)
[2018-10-20] MEDS: DIPHENHYDRAMINE 25 MG CAP PO ×3 (01:43→21:29)
[2018-10-20] MEDS: LORAZEPAM 2 MG INJ IV ×3 (01:46→18:55)
[2018-10-20] MEDS: ALBUTEROL/IPRATROPIUM (NEB) 3 ML AMP HHN ×4 (02:14→21:09)
[2018-10-20 05:26] LABS: ABNORMAL IP MESSAGE 1; HEMATOCRIT 27.6 % (37.0-47.0); HEMOGLOBIN 8.4 g/dl (12.0-16.0); MEAN CORPUSCULAR HEMOGLOBIN 29.3 pg (29.0-33.0); MEAN CORPUSCULAR HGB CONC 30.4 g/dl (32.0-37.0); MEAN CORPUSCULAR VOLUME 96.2 fl (82.0-101.0); MEAN PLATELET VOLUME 10.6 fl (7.4-10.4); PLATELET COUNT 376 10^3/UL (140-415); RED BLOOD COUNT 2.87 10^6/ul (4.20-5.40); RED CELL DISTRIBUTION WIDTH 13.4 % (11.5-14.5); RETICULOCYTE COUNT # 0.143 X10^6 (0.020-0.110); RETICULOCYTE COUNT % 4.9 % (0.5-1.5)
[2018-10-20 05:26] LABS: RETICULOCYTE RBC 2.91; WHITE BLOOD COUNT 14.7 10^3/ul (4.8-10.8)
[2018-10-20 05:35] LABS: IRON 42 ug/dl (35-150)
[2018-10-20 05:35] LABS: LACTATE DEHYDROGENASE 723 IU/L (313-618)
[2018-10-20 05:38] LABS: CARBAMAZEPINE (TEGRETOL) 7.4 ug/ml (8.0-12.0)
[2018-10-20 05:38] LABS: ADD MAN DIFF? YES; POSITIVE DIFF @See below
[2018-10-20] MEDS: LEVOTHYROXINE 75 MCG TAB PO (05:40)
[2018-10-20] MEDS: ONDANSETRON 4 MG INJ IV ×2 (05:44→14:50)
[2018-10-20 05:45] LABS: % IRON SATURATION 20 % SAT (22-52); TOTAL IRON BINDING CAPACITY 213 ug/dl (241-421)
[2018-10-20 05:48] LABS: ANION GAP 9 (5-13); BLOOD UREA NITROGEN 21 mg/dl (7-20); CALCIUM 8.1 mg/dl (8.4-10.2); CARBON DIOXIDE 17 mmol/L (21-31); CHLORIDE 117 mmol/L (97-110); CREATININE 1.13 mg/dl (0.44-1.00); Estimated GFR 49 mL/min (>60); GLUCOSE 84 mg/dl (70-220); POTASSIUM 5.1 mmol/L (3.5-5.1); SODIUM 143 mmol/L (135-144)
[2018-10-20 06:26] LABS: HEPATITIS C VIRAL ANTIBODY NEGATIVE (NEGATIVE)
[2018-10-20 06:42] LABS: FOLATE 13.7 ng/ml (2.8-20.0)
[2018-10-20 06:47] LABS: OCCULT BLOOD STOOL POSITIVE (NEGATIVE)
[2018-10-20 07:51] LABS: BAND NEUTROPHILS #M 3.2 10^3/ul (0.0-0.6); BAND NEUTROPHILS % (M) 22 % (0-4); EOSINOPHILS % (M) 3 % (0-7); LYMPHOCYTES #M 0.7 10^3/ul (0.8-2.9); LYMPHOCYTES % (M) 5 % (15-51); MONOCYTE #M 0.8 10^3/ul (0.3-0.9); MONOCYTES % (M) 6 % (0-11); MYELOCYTES #M 0.1 10^3/ul (0.0-0.0); MYELOCYTES % (M) 1 % (0-0); PLATELET ESTIMATE NORMAL; POLYCHROMASIA 1+ (0-0); REACTIVE LYMPHOCYTES #M 1.3 10^3/ul (0.0-0.0); REACTIVE LYMPHOCYTES% (M) 9 % (0-0); SEG NEUT #M 8.4 10^3/ul (1.6-7.5); SEGMENTED NEUTROPHILS (M) % 54 % (39-77); SMUDGE%M 35 % (0-0)
[2018-10-20 08:17] LABS: FREE T4 (FREE THYROXINE) 1.62 ng/dl (0.64-1.79)
[2018-10-20 08:36] LABS: FERRITIN 36.8 ng/ml (11.1-264.0)
[2018-10-20] MEDS: CARBAMAZEPINE 200 MG TAB PO ×2 (08:48→13:00)
[2018-10-20] MEDS: METHYLPREDNISOLONE 40 MG INJ IV (08:48)
[2018-10-20] MEDS: BALSAM PERU/CASTOR OIL 60 GM TUBE TOP ×2 (08:50→21:25)
[2018-10-20] MEDS: ENOXAPARIN 30 MG/0.3 ML SYG SC (08:50)
[2018-10-20] MEDS: DEXTROSE 5%-0.9% NACL 1,000 ML IV (14:42)
[2018-10-20] MEDS: carBAMAZepine CHEW 100 MG CHEW PO (21:00)
[2018-10-20] MEDS: HYDROCODONE/APAP (5/325) TAB PO (23:37)
[2018-10-20] MEDS: ACETAMINOPHEN 325 MG TAB PO (23:40)
[2018-10-21] MEDS: LORAZEPAM 2 MG INJ IV ×3 (01:46→18:37)
[2018-10-21] MEDS: ALBUTEROL/IPRATROPIUM (NEB) 3 ML AMP HHN ×4 (02:00→20:34)
[2018-10-21 02:59] LABS: OCCULT BLOOD STOOL POSITIVE (NEGATIVE)
[2018-10-21] MEDS: DIPHENHYDRAMINE 25 MG CAP PO (03:37)
[2018-10-21] MEDS: LEVOTHYROXINE 75 MCG TAB PO (06:58)
[2018-10-21] MEDS: ONDANSETRON 4 MG INJ IV (07:41)
[2018-10-21] MEDS: BALSAM PERU/CASTOR OIL 60 GM TUBE TOP ×2 (08:22→21:53)
[2018-10-21] MEDS: METHYLPREDNISOLONE 40 MG INJ IV (08:23)
[2018-10-21] MEDS: carBAMAZepine CHEW 100 MG CHEW PO ×2 (08:25→21:49)
[2018-10-21] MEDS: HYDROCODONE/APAP (5/325) TAB PO (08:26)
[2018-10-21] MEDS: ENOXAPARIN 30 MG/0.3 ML SYG SC (08:29)
[2018-10-21 08:34] LABS: ADD MAN DIFF? NO
[2018-10-21 08:37] LABS: ABNORMAL IP MESSAGE 1; HEMATOCRIT 24.9 % (37.0-47.0); HEMOGLOBIN 7.5 g/dl (12.0-16.0); MEAN CORPUSCULAR HEMOGLOBIN 28.8 pg (29.0-33.0); MEAN CORPUSCULAR HGB CONC 30.1 g/dl (32.0-37.0); MEAN CORPUSCULAR VOLUME 95.8 fl (82.0-101.0); MEAN PLATELET VOLUME 10.6 fl (7.4-10.4); PLATELET COUNT 337 10^3/UL (140-415); RED CELL DISTRIBUTION WIDTH 13.7 % (11.5-14.5)
[2018-10-21 08:37] LABS: WHITE BLOOD COUNT 10.6 10^3/ul (4.8-10.8)
[2018-10-21 08:49] LABS: POSITIVE DIFF @See below
[2018-10-21 09:01] LABS: ANION GAP 8 (5-13); BLOOD UREA NITROGEN 19 mg/dl (7-20); CALCIUM 7.8 mg/dl (8.4-10.2); CARBON DIOXIDE 20 mmol/L (21-31); CHLORIDE 114 mmol/L (97-110); CREATININE 1.18 mg/dl (0.44-1.00); Estimated GFR 47 mL/min (>60); GLUCOSE 87 mg/dl (70-220); MAGNESIUM 1.4 mg/dl (1.7-2.5); POTASSIUM 4.4 mmol/L (3.5-5.1); SODIUM 142 mmol/L (135-144)
[2018-10-21 09:17] LABS: BAND NEUTROPHILS #M 1.4 10^3/ul (0.0-0.6); BAND NEUTROPHILS % (M) 14 % (0-4); BASOPHIL #M 0.1 10^3/ul (0.0-0.0); BASOPHILS % (M) 1 % (0-2); EOSINOPHILS % (M) 8 % (0-7); LYMPHOCYTES #M 0.8 10^3/ul (0.8-2.9); LYMPHOCYTES % (M) 8 % (15-51); METAMYELOCYTES #M 0.4 10^3/ul (0.0-0.0); METAMYELOCYTES %M 4 % (0-0); MONOCYTE #M 0.4 10^3/ul (0.3-0.9); MONOCYTES % (M) 4 % (0-11); MYELOCYTES #M 0.1 10^3/ul (0.0-0.0); MYELOCYTES % (M) 1 % (0-0); PLATELET ESTIMATE NORMAL; POLYCHROMASIA 2+ (0-0); REACTIVE LYMPHOCYTES #M 0.2 10^3/ul (0.0-0.0); REACTIVE LYMPHOCYTES% (M) 2 % (0-0); SEG NEUT #M 6.3 10^3/ul (1.6-7.5); SEGMENTED NEUTROPHILS (M) % 58 % (39-77); SMUDGE%M 3 % (0-0)
[2018-10-21 11:41] LABS: HAPTOGLOBIN 407 mg/dL (43-212)
[2018-10-21] MEDS: SOD FERRIC GLUC COMPLX 125 MG in SOD CHLORIDE 0.9% 100 ML IVPB (12:28)
[2018-10-21] MEDS: MAGNESIUM SULFATE 2 GM/50 ML 50 ML IVPB (15:26)
[2018-10-21] MEDS: PROMETHAZINE/CODEINE 5ML CUP PO ×2 (15:26→21:52)
[2018-10-21] MEDS: DEXTROSE 5%-0.9% NACL 1,000 ML IV (15:26)
[2018-10-21 17:22] LABS: CARBAMAZEPINE (TEGRETOL) 8.1 ug/ml (8.0-12.0)
[2018-10-21 23:23] LABS: ERYTHROPOIETIN 24.8 mIU/mL (2.6-18.5)
[2018-10-22] MEDS: ALBUTEROL/IPRATROPIUM (NEB) 3 ML AMP HHN ×4 (01:11→19:56)
[2018-10-22] MEDS: HYDROCODONE/APAP (5/325) TAB PO ×3 (01:53→20:14)
[2018-10-22] MEDS: LORAZEPAM 2 MG INJ IV ×4 (02:39→23:52)
[2018-10-22] MEDS: DIPHENHYDRAMINE 25 MG CAP PO ×2 (04:10→21:29)
[2018-10-22] MEDS: LEVOTHYROXINE 75 MCG TAB PO (04:10)
[2018-10-22] MEDS: ONDANSETRON 4 MG INJ IV (07:51)
[2018-10-22 08:24] LABS: WHITE BLOOD COUNT 11.2 10^3/ul (4.8-10.8)
[2018-10-22 08:24] LABS: ABNORMAL IP MESSAGE 1; HEMATOCRIT 24.1 % (37.0-47.0); HEMOGLOBIN 7.4 g/dl (12.0-16.0); MEAN CORPUSCULAR HEMOGLOBIN 29.1 pg (29.0-33.0); MEAN CORPUSCULAR HGB CONC 30.7 g/dl (32.0-37.0); MEAN CORPUSCULAR VOLUME 94.9 fl (82.0-101.0); MEAN PLATELET VOLUME 9.7 fl (7.4-10.4); PLATELET COUNT 378 10^3/UL (140-415); RED BLOOD COUNT 2.54 10^6/ul (4.20-5.40); RED CELL DISTRIBUTION WIDTH 13.8 % (11.5-14.5)
[2018-10-22 08:35] LABS: ADD MAN DIFF? YES; POSITIVE DIFF @See below
[2018-10-22 08:44] LABS: BLOOD UREA NITROGEN 19 mg/dl (7-20); CARBON DIOXIDE 20 mmol/L (21-31); CREATININE 1.09 mg/dl (0.44-1.00); Estimated GFR 52 mL/min (>60); GLUCOSE 92 mg/dl (70-220); MAGNESIUM 1.8 mg/dl (1.7-2.5); POTASSIUM 4.6 mmol/L (3.5-5.1); SODIUM 140 mmol/L (135-144)
[2018-10-22 08:47] LABS: CARBAMAZEPINE (TEGRETOL) 6.4 ug/ml (8.0-12.0)
[2018-10-22 08:50] LABS: ANION GAP 6 (5-13); CHLORIDE 114 mmol/L (97-110)
[2018-10-22] MEDS: carBAMAZepine CHEW 100 MG CHEW PO ×2 (08:57→21:29)
[2018-10-22] MEDS: METHYLPREDNISOLONE 40 MG INJ IV (08:59)
[2018-10-22] MEDS: BALSAM PERU/CASTOR OIL 60 GM TUBE TOP ×2 (09:02→21:30)
[2018-10-22] MEDS: ENOXAPARIN 30 MG/0.3 ML SYG SC (09:03)
[2018-10-22 10:22] LABS: OCCULT BLOOD STOOL NEGATIVE (NEGATIVE)
[2018-10-22 10:39] LABS: ANISOCYTOSIS 1+ (0-0); BAND NEUTROPHILS #M 1.9 10^3/ul (0.0-0.6); BAND NEUTROPHILS % (M) 17 % (0-4); EOSINOPHILS % (M) 2 % (0-7); LYMPHOCYTES #M 1.4 10^3/ul (0.8-2.9); LYMPHOCYTES % (M) 13 % (15-51); MONOCYTE #M 0.5 10^3/ul (0.3-0.9); MONOCYTES % (M) 5 % (0-11); PLATELET ESTIMATE NORMAL; POIKILOCYTOSIS 1+ (0-0); POLYCHROMASIA 2+ (0-0); SEG NEUT #M 7.3 10^3/ul (1.6-7.5); SEGMENTED NEUTROPHILS (M) % 63 % (39-77); SMUDGE%M 2 % (0-0)
[2018-10-22] MEDS: ASPIRIN 325 MG TAB PO (14:21)
[2018-10-22] MEDS: SOD FERRIC GLUC COMPLX 125 MG in SOD CHLORIDE 0.9% 100 ML IVPB (14:21)
[2018-10-22] MEDS: DEXTROSE 5%-0.9% NACL 1,000 ML IV ×2 (16:19→17:58)
[2018-10-22 19:27] LABS: TROPONIN-I < 0.012 ng/ml (0.000-0.120)
[2018-10-22] MEDS: PROMETHAZINE/CODEINE 5ML CUP PO (20:09)
[2018-10-22] MEDS: ACETAMINOPHEN 325 MG TAB PO (23:52)
[2018-10-23 01:07] LABS: TROPONIN-I < 0.012 ng/ml (0.000-0.120)
[2018-10-23] MEDS: ALBUTEROL/IPRATROPIUM (NEB) 3 ML AMP HHN ×4 (01:35→20:54)
[2018-10-23] MEDS: HYDROCODONE/APAP (5/325) TAB PO (01:44)
[2018-10-23] MEDS: PROMETHAZINE/CODEINE 5ML CUP PO ×2 (03:54→11:15)
[2018-10-23] MEDS: DIPHENHYDRAMINE 25 MG CAP PO (04:43)
[2018-10-23] MEDS: LEVOTHYROXINE 75 MCG TAB PO (06:24)
[2018-10-23] MEDS: LORAZEPAM 2 MG INJ IV ×3 (06:47→21:37)
[2018-10-23 07:56] LABS: WHITE BLOOD COUNT 10.4 10^3/ul (4.8-10.8)
[2018-10-23 07:56] LABS: ABNORMAL IP MESSAGE 1; HEMATOCRIT 23.8 % (37.0-47.0); HEMOGLOBIN 7.1 g/dl (12.0-16.0); MEAN CORPUSCULAR HEMOGLOBIN 28.6 pg (29.0-33.0); MEAN CORPUSCULAR HGB CONC 29.8 g/dl (32.0-37.0); MEAN PLATELET VOLUME 10.1 fl (7.4-10.4); PLATELET COUNT 377 10^3/UL (140-415); RED BLOOD COUNT 2.48 10^6/ul (4.20-5.40)
[2018-10-23 08:07] LABS: ADD MAN DIFF? YES; POSITIVE DIFF @See below
[2018-10-23 08:18] LABS: ANION GAP 6 (5-13); BLOOD UREA NITROGEN 20 mg/dl (7-20); CALCIUM 7.9 mg/dl (8.4-10.2); CARBON DIOXIDE 21 mmol/L (21-31); CHLORIDE 115 mmol/L (97-110); CREATININE 1.08 mg/dl (0.44-1.00); Estimated GFR 52 mL/min (>60); GLUCOSE 126 mg/dl (70-220); POTASSIUM 4.3 mmol/L (3.5-5.1); SODIUM 142 mmol/L (135-144)
[2018-10-23 08:21] LABS: CARBAMAZEPINE (TEGRETOL) 7.9 ug/ml (8.0-12.0)
[2018-10-23 08:30] LABS: TROPONIN-I < 0.012 ng/ml (0.000-0.120)
[2018-10-23] MEDS: ASPIRIN (EC) 81 MG TAB PO (08:32)
[2018-10-23] MEDS: carBAMAZepine CHEW 100 MG CHEW PO ×2 (08:33→20:12)
[2018-10-23] MEDS: METHYLPREDNISOLONE 40 MG INJ IV (08:33)
[2018-10-23] MEDS: BALSAM PERU/CASTOR OIL 60 GM TUBE TOP ×2 (08:46→23:31)
[2018-10-23] MEDS: ENOXAPARIN 30 MG/0.3 ML SYG SC (08:46)
[2018-10-23 09:38] LABS: ANISOCYTOSIS 1+ (0-0); BAND NEUTROPHILS #M 1.2 10^3/ul (0.0-0.6); BAND NEUTROPHILS % (M) 12 % (0-4); EOSINOPHILS % (M) 3 % (0-7); GIANT THROMBO% (M) 1 % (0-0); LYMPHOCYTES #M 1.6 10^3/ul (0.8-2.9); LYMPHOCYTES % (M) 16 % (15-51); METAMYELOCYTES #M 0.1 10^3/ul (0.0-0.0); METAMYELOCYTES %M 1 % (0-0); MONOCYTE #M 0.5 10^3/ul (0.3-0.9); MONOCYTES % (M) 5 % (0-11); MYELOCYTES #M 0.3 10^3/ul (0.0-0.0); MYELOCYTES % (M) 3 % (0-0); PLATELET ESTIMATE NORMAL; POIKILOCYTOSIS 1+ (0-0); POLYCHROMASIA 1+ (0-0); SEG NEUT #M 6.4 10^3/ul (1.6-7.5); SEGMENTED NEUTROPHILS (M) % 60 % (39-77); SMUDGE%M 6 % (0-0)
[2018-10-23] MEDS: SOD FERRIC GLUC COMPLX 125 MG in SOD CHLORIDE 0.9% 100 ML IVPB (13:32)
[2018-10-23 14:41] LABS: TROPONIN-I < 0.012 ng/ml (0.000-0.120)
[2018-10-23] MEDS: PEG/ELECTROLYTES 4L BTL PO (17:11)
[2018-10-23 18:47] LABS: TROPONIN-I < 0.012 ng/ml (0.000-0.120)
[2018-10-23] MEDS: DEXTROSE 5%-0.9% NACL 1,000 ML IV (19:26)
[2018-10-23] MEDS: LACTULOSE 30ML CUP PO ×5 (20:16→23:31)
[2018-10-23] MEDS: POLYETHYLENE GLYCOL 3350 119 GM POWDER PO ×2 (20:17→23:32)
[2018-10-23] MEDS: ONDANSETRON 4 MG INJ IV (21:34)
[2018-10-24] MEDS: DIPHENHYDRAMINE 25 MG CAP PO (01:28)
[2018-10-24] MEDS: ALBUTEROL/IPRATROPIUM (NEB) 3 ML AMP HHN ×4 (03:13→21:18)
[2018-10-24] MEDS: LORAZEPAM 2 MG INJ IV ×3 (03:59→20:27)
[2018-10-24] MEDS: LEVOTHYROXINE 75 MCG TAB PO (05:46)
[2018-10-24] MEDS ORDERED: LIDOCAINE 2% (SDV) 5 ML INJ (07:00)
[2018-10-24] MEDS: ALTEPLASE (CATHFLO) 2 MG INJ CATHETER (09:53)
[2018-10-24] MEDS: carBAMAZepine CHEW 100 MG CHEW PO ×2 (09:53→20:27)
[2018-10-24] MEDS: BALSAM PERU/CASTOR OIL 60 GM TUBE TOP ×2 (09:53→20:28)
[2018-10-24] MEDS: ONDANSETRON 4 MG INJ IV ×2 (10:38→20:27)
[2018-10-24 12:40] LABS: ABNORMAL IP MESSAGE 1; HEMATOCRIT 24.2 % (37.0-47.0); HEMOGLOBIN 7.3 g/dl (12.0-16.0); MEAN CORPUSCULAR HEMOGLOBIN 29.6 pg (29.0-33.0); MEAN CORPUSCULAR HGB CONC 30.2 g/dl (32.0-37.0); MEAN PLATELET VOLUME 9.4 fl (7.4-10.4); PLATELET COUNT 441 10^3/UL (140-415); RED BLOOD COUNT 2.47 10^6/ul (4.20-5.40); RED CELL DISTRIBUTION WIDTH 14.2 % (11.5-14.5)
[2018-10-24 12:40] LABS: WHITE BLOOD COUNT 10.2 10^3/ul (4.8-10.8)
[2018-10-24 12:41] LABS: POSITIVE DIFF @See below
[2018-10-24 12:42] LABS: ADD MAN DIFF? YES
[2018-10-24 12:45] LABS: ANION GAP 6 (5-13); BLOOD UREA NITROGEN 13 mg/dl (7-20); CALCIUM 8.6 mg/dl (8.4-10.2); CARBON DIOXIDE 20 mmol/L (21-31); CHLORIDE 115 mmol/L (97-110); CREATININE 1.04 mg/dl (0.44-1.00); Estimated GFR 54 mL/min (>60); GLUCOSE 107 mg/dl (70-220); SODIUM 141 mmol/L (135-144)
[2018-10-24 13:54] LABS: ANISOCYTOSIS 1+ (0-0); BAND NEUTROPHILS #M 1.2 10^3/ul (0.0-0.6); BAND NEUTROPHILS % (M) 12 % (0-4); BURR CELLS 1+ (0-0); EOSINOPHILS % (M) 1 % (0-7); LYMPHOCYTES #M 1.2 10^3/ul (0.8-2.9); LYMPHOCYTES % (M) 12 % (15-51); MONOCYTE #M 0.5 10^3/ul (0.3-0.9); MONOCYTES % (M) 5 % (0-11); PLATELET ESTIMATE NORMAL; PLATELET MORPHOLOGY COMMENT @See below; POIKILOCYTOSIS 1+ (0-0); POLYCHROMASIA 1+ (0-0); REACTIVE LYMPHOCYTES #M 0.1 10^3/ul (0.0-0.0); REACTIVE LYMPHOCYTES% (M) 1 % (0-0); SEG NEUT #M 7.2 10^3/ul (1.6-7.5); SEGMENTED NEUTROPHILS (M) % 69 % (39-77); SMUDGE%M 47 % (0-0); TOXIC GRANULATION 1+ (0-0)
[2018-10-24] MEDS: SOD FERRIC GLUC COMPLX 125 MG in SOD CHLORIDE 0.9% 100 ML IVPB (13:55)
[2018-10-24] MEDS: morphine 2 MG INJ IV (13:55)
[2018-10-24 15:01] LABS: INR 1.06; PROTIME 13.9 Sec (11.9-14.9); PT RATIO 1.1
[2018-10-24 15:02] LABS: PARTIAL THROMBOPLASTIN TIME 36.5 Sec (23.0-35.0)
[2018-10-24] MEDS: PROPOFOL 20 ML (18:32)
[2018-10-24] MEDS: MIDAZOLAM 1 MG/ML 2 ML INJ (18:32)
[2018-10-24] MEDS: ETOMIDATE 20 MG INJ (18:32)
[2018-10-24] MEDS: DEXTROSE 5%-0.9% NACL 1,000 ML IV (21:31)
[2018-10-24] MEDS: HYDROCODONE/APAP (5/325) TAB PO (21:31)
[2018-10-25] MEDS: ONDANSETRON 4 MG INJ IV ×2 (01:11→06:04)
[2018-10-25] MEDS: HYDROCODONE/APAP (5/325) TAB PO ×2 (01:13→17:17)
[2018-10-25] MEDS: morphine 2 MG INJ IV ×4 (01:34→14:11)
[2018-10-25] MEDS ORDERED: traMADol 50 MG TAB GTB (02:00)
[2018-10-25] MEDS: ALBUTEROL/IPRATROPIUM (NEB) 3 ML AMP HHN ×3 (02:15→14:46)
[2018-10-25] MEDS: LORAZEPAM 2 MG INJ IV ×3 (03:13→15:35)
[2018-10-25] MEDS: LEVOTHYROXINE 75 MCG TAB PO (05:57)
[2018-10-25] MEDS: DIPHENHYDRAMINE 25 MG CAP PO (07:45)
[2018-10-25] MEDS: BALSAM PERU/CASTOR OIL 60 GM TUBE TOP (07:46)
[2018-10-25] MEDS: carBAMAZepine CHEW 100 MG CHEW PO (07:46)
[2018-10-25] MEDS: ALTEPLASE (CATHFLO) 2 MG INJ CATHETER (09:51)
[2018-10-25] MEDS: SOD FERRIC GLUC COMPLX 125 MG in SOD CHLORIDE 0.9% 100 ML IVPB (14:10)
[2018-10-25] MEDS: HEPARIN (100 UNITS/ML) 5 ML SYG CATHETER (16:24)
[2018-10-25] MEDS: ONDANSETRON 4 MG TAB PO (17:17)
== END 2018-10-25 17:55 | disposition home health service (06) | DRG 871 ==
LOC: TEL 10-17 13:22 → MS1 10-19 00:48 → E/R 01:02 → MS1 04:30 → ICU 19:37
PROC: 0DBK8ZX Excision of Ascending Colon, Via Natural or Artificial Opening Endoscopic, Diagnostic (ICD-10-PCS; 2018-10-24 17:15)
PROC: 0DBM8ZX Excision of Descending Colon, Via Natural or Artificial Opening Endoscopic, Diagnostic (ICD-10-PCS; 2018-10-24 17:15)
PROC: 0DB68ZX Excision of Stomach, Via Natural or Artificial Opening Endoscopic, Diagnostic (ICD-10-PCS; 2018-10-24 17:15)
PROC: 0DB78ZX Excision of Stomach, Pylorus, Via Natural or Artificial Opening Endoscopic, Diagnostic (ICD-10-PCS; 2018-10-24 17:15)
PROC: 02H633Z Insertion of Infusion Device into Right Atrium, Percutaneous Approach (ICD-10-PCS; principal; 2018-10-24 17:55)
PROC: B214YZZ Fluoroscopy of Right Heart using Other Contrast (ICD-10-PCS; 2018-10-24 17:55)
PROC: 5A1D70Z Performance of Urinary Filtration, Intermittent, Less than 6 Hours Per Day (ICD-10-PCS; 2018-10-24 17:55)
DX: A41.9 Sepsis, unspecified organism (principal); J96.01 Acute respiratory failure with hypoxia; N17.0 Acute kidney failure with tubular necrosis; G92 Toxic encephalopathy; J15.211 Pneumonia due to Methicillin susceptible Staphylococcus aureus; E87.3 Alkalosis; R65.20 Severe sepsis without septic shock; E83.41 Hypermagnesemia; B18.2 Chronic viral hepatitis C; D50.9 Iron deficiency anemia, unspecified; D63.8 Anemia in other chronic diseases classified elsewhere; D64.9 Anemia, unspecified; E03.9 Hypothyroidism, unspecified; E83.51 Hypocalcemia; E78.5 Hyperlipidemia, unspecified; G25.81 Restless legs syndrome; G40.909 Epilepsy, unspecified, not intractable, without status epilepticus; I12.9 Hypertensive chronic kidney disease with stage 1 through stage 4 chronic kidney disease, or unspecified chronic kidney disease; J44.9 Chronic obstructive pulmonary disease, unspecified; K20.9 Esophagitis, unspecified; K29.60 Other gastritis without bleeding; N18.3 Chronic kidney disease, stage 3 (moderate); R19.5 Other fecal abnormalities; Z90.2 Acquired absence of lung [part of]; Z88.1 Allergy status to other antibiotic agents; Z88.0 Allergy status to penicillin
CPT/HCPCS: 36415; 36556; 36600; 70450; 71045; 71250; 72100; 74176; 76536; 76775; 76942; 80048; 80053; 80061; 80156; 80202; 81001; 81003; 82043; 82140; 82270; 82550; 82553; 82607; 82668; 82728; 82746; 82803; 82962; 83010; 83036; 83540; 83605; 83615; 83690; 83735; 83880; 84100; 84155; 84300; 84439; 84443; 84484; 85025; 85045; 85610; 85730; 86706; 86803; 87040; 87070; 87081; 87340; 87400; 88305; 88312; 89220; 90935; 92526; 92610; 93005; 93306; 93970; 94640; 94664; 95819; 96361; 96374; 97116; 97163; 97530; 99217; 99285-25